=== PATIENT | female | born 1980 | race Caucasian/White ===

== ENCOUNTER 2017-05-27 16:26 | Emergency (ER) | payer OTHER ==
[~2017-05-27] VITALS: Ht 160 cm; Wt 69.4 kg
[~2017-05-27 16:26] MED LIST: ACYCLOVIR 800800 MG PO; CEPHALEXIN 500500 M3 PO; CYCLOBENZAPRINE10 MG PO; FAMOTIDINE PO; HYDROCODONE-AP1 EAC6 PO; IBUPROFEN 800800 M1 PO; IBUPROFEN 800800 MG PO; LIDOCAINE 22 %/30 GM TOP; MEDROLDOSEPACK PO; MOBIC7.5 MG PO; NAPROSYN500 MG PO; NOHOMEMEDICATIONS; NORCO 5-325 TA1 EAC1 PO; NORCO 5-325 TA1 EACH PO; ROBAXIN 750 MG750 M1 PO; TRAMADOL 50 MG50 MG PO
[2017-05-27] MEDS ORDERED: MOBIC7.5 MG PO (18:16)
[2017-05-27] MEDS ORDERED: HYDROCODONE-AP1 EAC6 PO (18:17)
[2017-05-27 18:38] VITALS: BP 155/82
== END 2017-05-27 18:38 | disposition home or self-care (01) ==
LOC: M.ERS 16:26
DX: M25.521 Pain in right elbow (principal); Z98.890 Other specified postprocedural states

== ENCOUNTER 2017-07-10 15:30 | Emergency (ER) | payer OTHER ==
[~2017-07-10] VITALS: Ht 172.7 cm; Wt 72.6 kg
[2017-07-10] MEDS ORDERED: IBUPROFEN 800800 M1 PO (16:27)
[2017-07-10] MEDS ORDERED: HYDROCODONE-AP1 EAC6 PO (16:27)
[2017-07-10 16:57] VITALS: BP 138/96
== END 2017-07-10 16:57 | disposition home or self-care (01) ==
LOC: M.ERS 15:30
DX: M79.604 Pain in right leg (principal)

== ENCOUNTER 2017-07-21 06:08 | Emergency (ER) | payer OTHER ==
[~2017-07-21] VITALS: Ht 160 cm; Wt 72.6 kg
[2017-07-21 06:41] LABS: INFLUENZA A ANTIGEN None Detected (None Detect); INFLUENZA B ANTIGEN None Detected (None Detect)
[2017-07-21 06:42] LABS: ABSOLUTE BASOPHILS 0.1 thou/uL (0.0-0.2); ABSOLUTE EOSINOPHILS 0.2 thou/uL (0.0-0.7); ABSOLUTE LYMPHOCYTES 2.3 thou/uL (0.8-5.3); ABSOLUTE MONOCYTES 0.6 thou/uL (0.0-1.2); ABSOLUTE NEUTROPHILS 4.4 thou/uL (1.6-8.1); BASOPHILS 0.7 %; HEMATOCRIT 40.1 % (37.0-47.0); HEMOGLOBIN 13.4 gm/dL (12.0-15.0); MCH 30.9 pg (26.0-34.0); MCHC 33.4 g/dL (28.0-37.0); MCV 92.5 fL (80.0-100.0); MONOCYTES 7.9 %; MPV 7.8 fl. (7.2-11.1); NUCLEATED RBCS 0 /100WBC; PLATELET COUNT* 359 thou/uL (150-400); POLYS 58.4 %; RBC 4.34 mil/uL (4.20-5.00); RDW-CV 13.1 % (10.5-14.5); WBC 7.5 thou/uL (4.0-11.0)
[2017-07-21 06:51] LABS: CALCIUM 8.8 mg/dL (8.5-10.1); CREATININE 0.7 mg/dL (0.6-1.3)
[2017-07-21 07:03] LABS: ALBUMIN 3.6 g/dL (3.4-5.0); TOTAL BILIRUBIN 0.3 mg/dL (<0.1-1.0); TOTAL PROTEIN 7.5 g/dL (6.4-8.2)
[2017-07-21] MEDS ORDERED: ZOFRAN ODT4 MG SUBLING (07:34)
[2017-07-21 07:42] LABS: URINE BILIRUBIN NEGATIVE (Negative); URINE BLOOD NEGATIVE (Negative); URINE CLARITY CLEAR; URINE COLOR YELLOW; URINE GLUCOSE-RANDOM NEGATIVE (Negative); URINE KETONES NEGATIVE (Negative); URINE LEUKOCYTES-REFLEX NEGATIVE (Negative); URINE NITRITE-REFLEX NEGATIVE (Negative); URINE PROTEIN NEGATIVE (Negative); URINE SPECIFIC GRAVITY 1.025 (1.005-1.030); URINE UROBILINOGEN 0.2 E.U./dl (0.2-1.0)
[2017-07-21 08:05] VITALS: BP 103/67
== END 2017-07-21 08:05 | disposition home or self-care (01) ==
LOC: M.ERS 06:08
PROVIDERS: Emergency Medicine
DX: R11.2 Nausea with vomiting, unspecified (principal); R19.7 Diarrhea, unspecified; R10.30 Lower abdominal pain, unspecified

== ENCOUNTER 2017-08-18 08:53 | Emergency (ER) | payer OTHER ==
[~2017-08-18] VITALS: Ht 160 cm; Wt 72.6 kg
[~2017-08-18 08:53] MED LIST changes: +ZOFRAN ODT4 MG SUBLING
[2017-08-18] MEDS ORDERED: TESSALON PERLE100 MG PO (09:41)
[2017-08-18] MEDS ORDERED: MEDROLDOSEPACK PO (09:41)
[2017-08-18] MEDS ORDERED: PROAIR HFA8.5 GM PO (09:41)
[2017-08-18 09:50] VITALS: BP 144/90
== END 2017-08-18 09:50 | disposition home or self-care (01) ==
LOC: M.ERS 08:53
DX: J06.9 Acute upper respiratory infection, unspecified (principal)

== ENCOUNTER 2017-12-21 06:10 | Emergency (ER) | payer OTHER ==
[~2017-12-21] VITALS: Ht 160 cm; Wt 72.6 kg
[~2017-12-21 06:10] MED LIST changes: +PROAIR HFA8.5 GM PO; +TESSALON PERLE100 MG PO
[2017-12-21 06:16] VITALS: BP 145/83
[2017-12-21] MEDS ORDERED: PREDNISONE 20 M20 M1 PO (06:26)
[2017-12-21] MEDS ORDERED: ZPAK PO (06:26)
[2017-12-21] MEDS ORDERED: PROMETH-CODEIN 65 ML PO (06:39)
== END 2017-12-21 06:32 | disposition home or self-care (01) ==
LOC: M.ERS 06:10
DX: J06.9 Acute upper respiratory infection, unspecified (principal)

== ENCOUNTER 2018-01-18 05:50 | Emergency (ER) | payer OTHER ==
[~2018-01-18] VITALS: Ht 160 cm; Wt 77.1 kg
[~2018-01-18 05:50] MED LIST changes: +PREDNISONE 20 M20 M1 PO; +PROMETH-CODEIN 65 ML PO; +ZPAK PO
[2018-01-18] MEDS ORDERED: IBUPROFEN 800800 M1 PO (08:57)
[2018-01-18] MEDS ORDERED: NORCO 5-325 TA1 EACH PO (08:57)
[2018-01-18 09:03] VITALS: BP 155/97
== END 2018-01-18 09:11 | disposition home or self-care (01) ==
LOC: M.ERS 05:50
DX: M25.561 Pain in right knee (principal); M79.89 Other specified soft tissue disorders; Z90.49 Acquired absence of other specified parts of digestive tract; Z98.890 Other specified postprocedural states

== ENCOUNTER 2020-05-23 13:43 | Emergency (ER) | payer OTHER ==
[~2020-05-23] VITALS: Ht 165.1 cm; Wt 86.2 kg
[2020-05-23 14:14] LABS: URINE BILIRUBIN NEGATIVE (Negative); URINE BLOOD 3+ (Negative); URINE CLARITY SL CLOUDY; URINE COLOR YELLOW; URINE GLUCOSE-RANDOM NEGATIVE (Negative); URINE KETONES TRACE (Negative); URINE LEUKOCYTES-REFLEX TRACE (Negative); URINE NITRITE-REFLEX NEGATIVE (Negative); URINE PROTEIN 1+ (Negative); URINE SPECIFIC GRAVITY 1.015 (1.005-1.030); URINE UROBILINOGEN 0.2 E.U./dl (0.2-1.0)
[2020-05-23 14:27] LABS: ABSOLUTE BASOPHILS 0.1 thou/uL (0.0-0.2); ABSOLUTE EOSINOPHILS 0.4 thou/uL (0.0-0.7); ABSOLUTE LYMPHOCYTES 2.5 thou/uL (0.8-5.3); ABSOLUTE MONOCYTES 0.6 thou/uL (0.0-1.2); ABSOLUTE NEUTROPHILS 5.9 thou/uL (1.6-8.1); BASOPHILS 1.1 %; EOSINOPHILS 3.9 %; HEMATOCRIT 38.8 % (37.0-47.0); HEMOGLOBIN 13.1 gm/dL (12.0-15.0); LYMPHOCYTES 26.3 %; MCH 30.8 pg (26.0-34.0); MCHC 33.7 g/dL (28.0-37.0); MCV 91.3 fL (80.0-100.0); MPV 7.6 fl. (7.2-11.1); NUCLEATED RBCS 0 /100WBC; PLATELET COUNT* 394 thou/uL (150-400); POLYS 62.7 %; RBC 4.25 mil/uL (4.20-5.00); WBC 9.5 thou/uL (4.0-11.0)
[2020-05-23 14:32] LABS: URINE RBC >20 Many /HPF (0-2)
[2020-05-23 14:33] LABS: CASTS None Seen /LPF (None Seen); CRYSTALS None Seen /LPF (None Seen); MUCUS 0-3 Light strn/LPF (None Seen); SQUAMOUS 4-10 Moderate /LPF (0-3); URINE WBC-REFLEX 6-15 Few /HPF (0-5)
[2020-05-23 14:34] LABS: BACTERIA-REFLEX 1-9 Few /HPF (None Seen)
[2020-05-23 14:42] LABS: CALCIUM 8.5 mg/dL (8.5-10.1); CREATININE 0.9 mg/dL (0.6-1.3); POTASSIUM 3.5 mmol/L (3.5-5.1)
[2020-05-23 14:54] LABS: ALBUMIN 3.4 g/dL (3.4-5.0); TOTAL BILIRUBIN 0.2 mg/dL (<0.1-1.0); TOTAL PROTEIN 7.2 g/dL (6.4-8.2)
[2020-05-23] MEDS ORDERED: NORCO 5-325 TA1 EAC2 PO (15:46)
[2020-05-23] MEDS ORDERED: OMEPRAZOLE 20 M20 M1 PO (15:46)
[2020-05-23] MEDS ORDERED: PEPCID20 MG PO (15:46)
[2020-05-23] MEDS ORDERED: KEFLEX500 M1 PO (15:52)
[2020-05-23 16:04] VITALS: BP 162/99
== END 2020-05-23 16:04 | disposition home or self-care (01) ==
LOC: M.ERS 13:43
PROVIDERS: Family Medicine
DX: N39.0 Urinary tract infection, site not specified (principal); D23.9 Other benign neoplasm of skin, unspecified; Q89.9 Congenital malformation, unspecified; Z98.890 Other specified postprocedural states; Z90.49 Acquired absence of other specified parts of digestive tract

== ENCOUNTER 2020-10-28 22:30 | Emergency (ER) | payer OTHER ==
[~2020-10-28] VITALS: Ht 162.6 cm; Wt 97.5 kg
[~2020-10-28 22:30] MED LIST changes: +KEFLEX500 M1 PO; +NORCO 5-325 TA1 EAC2 PO; +OMEPRAZOLE 20 M20 M1 PO; +PEPCID20 MG PO
[2020-10-28 23:29] LABS: ABSOLUTE BASOPHILS 0.1 thou/uL (0.0-0.2); ABSOLUTE EOSINOPHILS 0.5 thou/uL (0.0-0.7); ABSOLUTE LYMPHOCYTES 3.9 thou/uL (0.8-5.3); ABSOLUTE MONOCYTES 0.7 thou/uL (0.0-1.2); ABSOLUTE NEUTROPHILS 5.4 thou/uL (1.6-8.1); HEMATOCRIT 36.6 % (37.0-47.0); HEMOGLOBIN 12.5 gm/dL (12.0-15.0); LYMPHOCYTES 36.9 %; MCH 30.7 pg (26.0-34.0); MCHC 34.3 g/dL (28.0-37.0); MCV 89.5 fL (80.0-100.0); MONOCYTES 6.5 %; MPV 7.3 fl. (7.2-11.1); NUCLEATED RBCS 0 /100WBC; PLATELET COUNT* 389 thou/uL (150-400); POLYS 50.6 %; RBC 4.08 mil/uL (4.20-5.00); RDW-CV 13.4 % (10.5-14.5); WBC 10.6 thou/uL (4.0-11.0)
[2020-10-28 23:37] LABS: CALCIUM 8.6 mg/dL (8.5-10.1); CREATININE 0.9 mg/dL (0.6-1.3); POTASSIUM 3.7 mmol/L (3.5-5.1)
[2020-10-28 23:39] LABS: PROTIME 10.4 Seconds (9.20-11.50)
[2020-10-28 23:47] LABS: ALBUMIN 3.6 g/dL (3.4-5.0); TOTAL BILIRUBIN 0.2 mg/dL (<0.1-1.0); TOTAL PROTEIN 7.4 g/dL (6.4-8.2)
[2020-10-29 00:04] LABS: URINE BILIRUBIN NEGATIVE (Negative); URINE BLOOD NEGATIVE (Negative); URINE CLARITY CLEAR; URINE COLOR YELLOW; URINE GLUCOSE-RANDOM NEGATIVE (Negative); URINE KETONES NEGATIVE (Negative); URINE LEUKOCYTES-REFLEX NEGATIVE (Negative); URINE NITRITE-REFLEX NEGATIVE (Negative); URINE PROTEIN NEGATIVE (Negative); URINE SPECIFIC GRAVITY 1.025 (1.005-1.030); URINE UROBILINOGEN 0.2 E.U./dl (0.2-1.0)
[2020-10-29] MEDS ORDERED: HYDROXYZINE HCL25 M2 PO (01:37)
[2020-10-29] MEDS ORDERED: PAXIL20 MG PO (01:37)
[2020-10-29] MEDS ORDERED: LISINOPRIL20 MG PO (01:55)
[2020-10-29 02:24] VITALS: BP 137/87
--- NOTE | 2020-10-29 15:00 | EKG ---
[place] [address] ELECTROCARDIOGRAM REPORT Name: CURTISSANKET S Room: [facility]#: [id number] Admission: 10/28/20 Attend Phys: Discharge: 10/29/20 Date of : 76 Date of Service: 10/28/20 2255 Report #: [id number] THIS REPORT FOR: //name// [facility] ED Test Date: 2020-10-28 Test Time: 22:55:28 Pat Name: SANKET ACEVEDO Department: Room: Gender: F Regional Operations Director: SHAY : 1980 Requested By: Danielle Alexis Order Number: [id number] MD: Juwan Thao Measurements Intervals [place] Rate: 59 P: -2 VA: 127 QRS: -12 QRSD: 92 T: -4 QT: 414 QTc: 411 Interpretive Statements Sinus rhythm Abnormal R-wave progression, late transition Borderline T abnormalities, inferior leads Compared to ECG 06/13/2015 11:54:19 no change Electronically Signed On 10-29-2020 15:00:15 CDT by Juwan Thao [email or web address] <ELECTRONICALLY SIGNED> By: Juwan Thao MD, FAC 10/29/20 1500 2255 2255 Juwan Thao MD, [facility] /EPI
--- NOTE | 2020-10-29 15:01 | EKG ---
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
== END 2020-10-29 02:25 | disposition home or self-care (01) ==
LOC: M.ERS 22:30
PROVIDERS: Emergency Medicine
DX: R07.89 Other chest pain (principal); I10 Essential (primary) hypertension; F41.9 Anxiety disorder, unspecified; Z79.899 Other long term (current) drug therapy; Z98.890 Other specified postprocedural states

== ENCOUNTER 2021-01-19 14:05 | Emergency (ER) | payer OTHER ==
[~2021-01-19] VITALS: Ht 162.6 cm; Wt 94.3 kg
[~2021-01-19 14:05] MED LIST changes: +HYDROXYZINE HCL25 M2 PO; +LISINOPRIL20 MG PO; +PAXIL20 MG PO
[2021-01-19 15:04] VITALS: BP 124/68
== END 2021-01-19 15:05 | disposition home or self-care (01) ==
LOC: M.ERS 14:05
DX: U07.1 COVID-19 (principal); R05 Cough; R53.83 Other fatigue; M79.10 Myalgia, unspecified site; I10 Essential (primary) hypertension; Z98.890 Other specified postprocedural states; Z90.49 Acquired absence of other specified parts of digestive tract; Z88.8 Allergy status to other drugs, medicaments and biological substances